=== PATIENT | female | born 1995 | race American Indian/Alaskan Native ===

== ENCOUNTER 2017-01-30 16:13 | Emergency (ER) | payer MEDICAID ==
[2017-01-30 16:31] VITALS: BP 122/62
--- NOTE | 2017-01-30 18:30 | Emergency Department Report ---
ED General Adult HPI - General Chief complaint: Abdominal Pain Stated complaint: ABD PAIN Time Seen by Provider: 01/30/17 18:22 Source: patient Mode of arrival: Ambulatory Limitations: No Limitations - History of Present Illness Initial comments: PT c/o intermittent, vague lower abd pain x 2 weeks. PT states she last had sex a week ago and did not use condom. PT states she has noticed an increase in her vaginal discharge. PT states her discharge is white. MD Complaint: vaginal discharge Onset/Timin -: Gradual, week(s) Location: genitals Severity scale (0 -10): 6 Quality: aching, constant (since last night) Consistency: constant (x 1 day ), intermittent (x 2 weeks ) Improves with: none Worsens with: none Associated Symptoms: denies: fever/chills, loss of appetite, nausea/vomiting Treatments Prior to Arrival: none - Related Data Home Medications Medication Instructions Recorded Confirmed Last Taken No Known Home Medications [No 01/30/17 01/30/17 Unknown Reported Home Medications] Allergies Allergy/AdvReac Type Severity Reaction Status Date / Time No Known Allergies Allergy Unverified 01/30/17 16:28 ED Review of Systems ROS: Stated complaint: ABD PAIN Other details as noted in HPI Comment: All other systems reviewed and negative Constitutional: denies: chills, fever Cardiovascular: denies: chest pain Gastrointestinal: abdominal pain. denies: diarrhea, constipation Genitourinary: discharge. denies: dysuria, abnormal menses, dyspareunia Musculoskeletal: denies: back pain Skin: denies: rash ED Past Medical Hx - Past Medical History Previous Medical History?: Yes Additional medical history: Vaginal delivery 01-15-2016 - Surgical History Past Surgical History?: No - Social History Smoking Status: Never Smoker Substance Use Type: Marijuana, Non Opiate Pain - Medications Home Medications: Home Medications Medication Instructions Recorded Confirmed Last Taken Type No Known Home Medications [No 01/30/17 01/30/17 Unknown History Reported Home Medications] ED Physical Exam - General Limitations: No Limitations General appearance: alert, in no apparent distress - Head Head exam: Present: atraumatic, normocephalic, normal inspection - Eye Eye exam: Present: normal appearance, PERRL - ENT ENT exam: Present: normal exam, normal orophraynx, normal external ear exam - Neck Neck exam: Present: normal inspection, full ROM - Respiratory Respiratory exam: Present: normal lung sounds bilaterally. Absent: respiratory distress, wheezes, rales, chest wall tenderness - Cardiovascular Cardiovascular Exam: Present: regular rate, normal rhythm, normal heart sounds - GI/Abdominal GI/Abdominal exam: Present: soft, normal bowel sounds. Absent: distended, tenderness, guarding, rebound - External exam: Present: normal external exam. Absent: lesions, bleeding Speculum exam: Present: vaginal discharge (small amount of white vaginal discharge in vault ), other (cervix red, not friable ). Absent: cervical discharge Bi-manual exam: Present: cervical motion tendernes. Absent: normal bi-manual exam, adnexal tenderness, adnexal mass, uterine enlargement, uterine tenderness - Extremities Exam Extremities exam: Present: normal inspection, full ROM - Back Exam Back exam: Present: normal inspection, full ROM. Absent: tenderness, CVA tenderness (R), CVA tenderness (L), muscle spasm, paraspinal tenderness, vertebral tenderness - Neurological Exam Neurological exam: Present: alert, oriented X3, normal gait - Psychiatric Psychiatric exam: Present: normal affect, normal mood - Skin Skin exam: Present: warm, dry, intact ED Course Vital Signs 01/30/17 16:28 Temperature 98.6 F Pulse Rate 68 Respiratory 20 Rate Blood Pressure 122/62 O2 Sat by Pulse 100 Oximetry - Reevaluation(s) Reevaluation #1: 01/30/17 18:30 PT aware of plan of care. Reevaluation #2: 01/30/17 20:36 PT aware of pelvic exam findings ED Medical Decision Making - Differential Diagnosis uti, std, cervicitis, pid Critical care attestation.: If time is entered above; I have spent that time in minutes in the direct care of this critically ill patient, excluding procedure time. ED Disposition Clinical Impression: Cervicitis Disposition: DISCHARGED TO HOME OR SELFCARE Is pt being admited?: No Does the pt Need Aspirin: No Condition: Stable Instructions: Cervicitis (ED), Abdominal Pain (ED) Additional Instructions: Pelvic rest x 7 days If your cultures come back positive, someone from the hospital should call you. Your sexual partners need testing and possible treatment Referrals: [facility] [Outside] - 3-5 Days MADELINE BRADLEY MD [Staff Physician] - 3-5 Days PRIMARY CAREMD [Primary Care Provider] - 3-5 Days JOSE LUIS DOAN MD [Staff Physician] - 3-5 Days Forms: STI Treatment and Prevention Time of Disposition: 21:38
[2017-01-30 18:38] LABS: Bacteria,Urine 1+ /HPF (Negative); Bilirubin,Urine NEG (Negative); Blood,Urine NEG (Negative); Ketones,Urine NEG (Negative); Leukocyte Esterase,Urine MOD (Negative); Mucus,Urine FEW /HPF; Nitrite,Urine NEG (Negative); Protein,Urine <15 mg/dL mg/dL (Negative); Urobilinogen,Urine < 2.0 mg/dL (<2.0)
[2017-01-30] MEDS: ROCEPHIN IM ONE (20:50)
[2017-01-30] MEDS: ZITHROMAX PO ONE (21:02)
[2017-01-30] MEDS: XYLOCAINE 1% MPF 5 mL INFILTRATI ONE (21:02)
== END 2017-01-30 23:00 | disposition home or self-care (01) ==
LOC: ED 16:13
DX: N72 Inflammatory disease of cervix uteri (principal); F12.10 Cannabis abuse, uncomplicated
CPT/HCPCS: 81001; 81025; 87210; 87591; 96372; 99284; J0696